=== PATIENT | male | born 1990 | race American Indian/Alaskan Native ===

== ENCOUNTER 2017-02-15 06:41 | Emergency (ER) | payer SELFPAY ==
[2017-02-15 07:18] VITALS: BP 151/88
--- NOTE | 2017-02-16 15:23 | Emergency Department Report ---
Entered by BROOKS LINN, acting as scribe for PAT WADE PA. ED Rash HPI - HPI Chief Complaint: Skin Rash Stated Complaint: ALLERGIC REACTION Time Seen by Provider: 02/15/17 09:11 Duration: 1 Day Location: Neck, Other (face) Suspected Cause: Other (new razor) Rash Symptoms: Yes Itching (neck and face), No Facial Swelling, No Tongue/Oral Swelling, No Breathing Difficulties, No Choking Sensation, No Wheezing/Dyspnea, No Peeling, No Blistering, No Fever, No Lightheaded, No Malaise, No Myalgias Severity: mild Other History: 26 y/o male, with no PMHx, presents with constant, mild rash to the face and neck that started yesterday as a result of shaving with a brand new razor. Sx include facial and neck itching but pt denies SOB, SPENCER, fever, n/ v or throat swelling. He also denies taking any medication for the Sx. ED Review of Systems ROS: Stated complaint: ALLERGIC REACTION Other details as noted in HPI Comment: All other systems reviewed and negative Constitutional: denies: chills, fever Respiratory: denies: cough, shortness of breath Cardiovascular: denies: chest pain Gastrointestinal: denies: abdominal pain, nausea, vomiting Skin: rash, other (face and neck itching) ED Past Medical Hx - Past Medical History Previous Medical History?: No - Surgical History Past Surgical History?: No - Social History Smoking Status: Current Every Day Smoker Substance Use Type: Alcohol, Other - Medications Home Medications: Home Medications Medication Instructions Recorded Confirmed Last Taken Type Sulfamethoxazole/Trimethoprim 1 each PO BID #20 tablet 06/14/14 Unknown Rx [Bactrim Ds] metroNIDAZOLE [Flagyl] 500 mg PO Q8HR #10 tablet 06/14/14 Unknown Rx Cephalexin [Keflex] 500 mg PO BID #30 capsule 02/15/17 Unknown Rx diphenhydrAMINE [Benadryl CAP] 25 mg PO QHS PRN #20 capsule 02/15/17 Unknown Rx Rash Exam - Exam General: Vital signs noted. No distress. Alert and acting appropriately. GENERAL: Patient is alert and oriented x 3. No apparent distress, normal gait, atraumatic. HEAD: Head is normocephalic and atraumatic. NEUROLOGIC: No focal deficit., Cranial nerves II - XII are grossly intact. No loss of sensation. No facial droop. HEENT: No Periorbital Edema, No Conjuctival Injection, No Chemosis, No Perioral Edema, No Tongue Edema, No Uvular Edema, No Compromised Airway, No Drooling Lungs: Yes Good Air Exchange, No Wheezes, No Ronchi, No Stridor, No Cough, No Labored Respirations, No Retractions, No Use of Accessory Muscles, No Other Abnormal Lung Sounds Heart: No Regular, No Murmur Skin: Yes Other (facial and neck lesions consistent with folliculitis. No TTP), No Urticarial Rash, No Maculopapular Rash, No Morbilliform rash, No Bulla(e), No Excoriations, No Weeping, No Tenderness, No Erythema, No Edema, No Encrustations Other: Positive: Abdomen Normal, Neurologic Normal, Musculoskeletal Normal ED Course Vital Signs 02/15/17 07:14 Temperature 98.3 F Pulse Rate 63 Respiratory 18 Rate Blood Pressure 151/88 O2 Sat by Pulse 100 Oximetry ED Medical Decision Making - Medical Decision Making 26-year-old male presents with rash to the face and neck that started yesterday. ED course: Pt states rash itches. Pt is not ill-appearing. Exam: Pt has lesions to the face and neck consistent with folliculitis Discussed with pt to watch rash for the next couple of days. Discussed the follow-up for a tie in hand as referred. Discuss his symptoms return or worsen to return to the ED Pt states understanding and will follow instructions. Vital signs stable. Patient is in no acute distress. Critical care attestation.: If time is entered above; I have spent that time in minutes in the direct care of this critically ill patient, excluding procedure time. ED Disposition Clinical Impression: Folliculitis barbae, Carbuncle and furuncle of face Disposition: DC-01 TO HOME OR SELFCARE Is pt being admited?: No Does the pt Need Aspirin: No Condition: Stable Instructions: Furunculosis and Carbunculosis (ED) Prescriptions: diphenhydrAMINE [Benadryl CAP] 25 mg PO QHS PRN #20 capsule PRN Reason: Allergy Symptoms Cephalexin [Keflex] 500 mg PO BID #30 capsule Referrals: PRIMARY CARE, [Primary Care Provider] - 3-5 Days [facility] [Outside] - 3-5 Days [facility] [Outside] - 3-5 Days [facility] [Outside] - 3-5 Days Forms: Work/School Release Form(ED) Time of Disposition: 10:30 This documentation as recorded by the TEMITOPE soares RYAN,accurately reflects the service I personally performed and the decisions made by ,PAT WADE PA.
== END 2017-02-15 10:37 | disposition home or self-care (01) ==
LOC: ED 06:41
DX: L02.03 Carbuncle of face (principal); F17.200 Nicotine dependence, unspecified, uncomplicated
CPT/HCPCS: 99282

== ENCOUNTER 2018-10-06 13:29 | Emergency (ER) | payer OTHER ==
--- NOTE | 2018-10-06 13:40 | Emergency Department Report ---
Blank Doc - Documentation Documentation: 27 y/o male comes in for lower lip swelling this morning. Patient reports that is hurts. Thinks it may had happen after he went to the [facility].
[2018-10-06 13:41] VITALS: BP 123/68
[2018-10-06] MEDS ORDERED: DECADRON IM ONE (14:46)
[2018-10-06] MEDS ORDERED: XYLOCAINE 1% MPF 5 mL INFILTRATI ONE (14:48)
[2018-10-06] MEDS ORDERED: ROCEPHIN IM ONE (14:48)
--- NOTE | 2018-10-06 14:49 | Emergency Department Report ---
ED Rash HPI - HPI Chief Complaint: Allergic Reaction Stated Complaint: BOTTOM LIP SWOLLEN Time Seen by Provider: 10/06/18 14:45 Duration: 5 Days Location: Other Suspected Cause: Other Rash Symptoms: Yes Blistering, No Itching, No Facial Swelling, No Tongue/Oral Swelling, No Breathing Difficulties, No Choking Sensation, No Wheezing/Dyspnea, No Peeling, No Fever, No Lightheaded, No Malaise, No Myalgias Severity: mild Other History: Patient is a 27-year-old male who presents to the emergency room with herpetic lesions on his lip. He states he's never had these before. There is quite a bit of swelling of the upper lip. He also has a secondary infection probably from picking at the wound. He states that the wound does tingle and olivares. It is crusty and is shiny as would be expected with cold sores. Patient denies any history of STDs HSV or HIV. ED Review of Systems ROS: Stated complaint: BOTTOM LIP SWOLLEN Other details as noted in HPI Comment: All other systems reviewed and negative ED Past Medical Hx - Past Medical History Previous Medical History?: No - Surgical History Past Surgical History?: No - Family History Family history: no significant - Social History Smoking Status: Current Every Day Smoker Substance Use Type: Marijuana - Medications Home Medications: Home Medications Medication Instructions Recorded Confirmed Last Taken Type Acyclovir [Zovirax Tab] 800 mg PO Q12H #20 tab 10/06/18 Unknown Rx cefTRIAXone [Rocephin] 1 gm IM ONCE #1 vial 10/06/18 Unknown Rx predniSONE [Deltasone] 20 mg PO DAILY #5 tablet 10/06/18 Unknown Rx Rash Exam - Exam General: Vital signs noted. No distress. Alert and acting appropriately. HEENT: No Periorbital Edema, No Conjuctival Injection, No Chemosis, No Perioral Edema, No Tongue Edema, No Uvular Edema, No Compromised Airway, No Drooling Lungs: Yes Good Air Exchange, No Wheezes, No Ronchi, No Stridor, No Cough, No Labored Respirations, No Retractions, No Use of Accessory Muscles, No Other Abnormal Lung Sounds Heart: Yes Regular, No Murmur Skin: Yes Excoriations, Yes Encrustations, No Urticarial Rash, No Maculopapular Rash, No Morbilliform rash, No Bulla(e), No Weeping, No Tenderness, No Erythema, No Edema Other: Positive: Abdomen Normal, Neurologic Normal, Musculoskeletal Normal ED Course Vital Signs 10/06/18 13:39 Temperature 98.3 F Pulse Rate 57 L Respiratory 16 Rate Blood Pressure 123/68 O2 Sat by Pulse 100 Oximetry ED Medical Decision Making - Medical Decision Making Vital Signs 10/06/18 13:39 Temperature 98.3 F Pulse Rate 57 L Respiratory 16 Rate Blood Pressure 123/68 O2 Sat by Pulse 100 Oximetry ABC intact controlling secretions taking po no fever WDWN non ill appearing male Patient was educated on oral herpes. I've given him antiviral for the acute outbreak. I also put him on prednisone. I have treated him with Rocephin here in the ER for the secondary infection. Also discussed prophylaxis with the patient and given him primary care follow-up. Critical care attestation.: If time is entered above; I have spent that time in minutes in the direct care of this critically ill patient, excluding procedure time. ED Disposition Clinical Impression: HSV (herpes simplex virus) infection, Cold sore, Secondary infection Disposition: DC-01 TO HOME OR SELFCARE Is pt being admited?: No Does the pt Need Aspirin: No Condition: Stable Instructions: Oral Herpes Simplex Virus Infections (ED) Additional Instructions: DIET TOLERATED MEDS ORDERED TODAY IN ER FOLLOW INSTRUCTIONS ON THE BOTTLE FOLLOW UP PCP WITHIN 48 HOURS TO ENSURE YOU ARE GETTING BETTER ACTIVITY TOLERATED MOTRIN OR TYLENOL FOR PAIN OR FEVER RETURN TO THE ER FOR WORSENING SYMPTOMS NOT RELIEVED BY YOUR MEDICATIONS. Prescriptions: predniSONE [Deltasone] 20 mg PO DAILY #5 tablet cefTRIAXone [Rocephin] 1 gm IM ONCE #1 vial Acyclovir [Zovirax Tab] 800 mg PO Q12H #20 tab Referrals: [facility] [Outside] - 3-5 Days Forms: Work/School Release Form(ED) Time of Disposition: 14:46
== END 2018-10-06 15:02 | disposition home or self-care (01) ==
LOC: ED 13:29
DX: B00.9 Herpesviral infection, unspecified (principal)
CPT/HCPCS: 96372; 99282; J0696; J1100

== ENCOUNTER 2019-09-11 13:07 | Emergency (ER) | payer SELFPAY ==
[2019-09-11 13:33] VITALS: BP 126/87
--- NOTE | 2019-09-11 13:35 | Emergency Department Report ---
Chief Complaint: Neck Pain/Injury Stated Complaint: SHOULDER PAIN Time Seen by Provider: 09/11/19 13:31 - HPI History of Present Illness: pt is a 28 yo male who presents to the ED with c/o right sided neck and right sided shoulder pain began yesterday he denies any injury or fall he denies any numbness, weakness, bowel or bladder incontinence no fever, n/v/d, no headache, no vision changes PMHx none no allergies to meds Vitals are normal On exam: Non toxic appearing, no acute distress atraumatic, normocephalic normal appearance of the eyes, PERRL, EOMI, no periorbital edema or ecchymosis moist mucus membranes regular heart rate and rhythm, no gallops, no rubs, no murmurs breath sounds are clear bilaterally, no w/r/r No midline or paraspinal C-spine, T-spine, L-spine tenderness to palpation, no step-offs, no deformities, full range of motion of the C-spine, no meningeal signs Right-sided trapezius tenderness to palpation, no deformity, no crepitus, full range of motion of the bilateral upper extremities, neurovascularly intact, able to lift arms above the head A&O x4, no focal neuro deficit, 5 out of 5 strength in the bilateral upper extremities and lower extremities, sensation intact throughout cranial nerves II through XII intact, normal gait skin is warm, dry, intact Examination consistent with muscle strain Nexus criteria negative, no clinical signs or symptoms of meningitis Discussed supportive care and [id number] treatment with patient Patient will be referred to a primary care doctor and orthopedic doctor Discussed strict return precautions with patient Medical screening examination performed and there is no threat to life or limb at this time MSE screening note: Focused history and physical exam performed. ED Disposition for MSE Clinical Impression: Trapezius muscle strain Qualifiers: Encounter type: initial encounter Laterality: right Qualified Code(s): S46.811A - Strain of other muscles, fascia and tendons at shoulder and upper arm level, right arm, initial encounter Disposition: MED SCREENING EXAM-LEFT Is pt being admited?: No Does the pt Need Aspirin: No Condition: Stable Instructions: Muscle Strain (ED) Additional Instructions: alternate tylenol then ibuprofen every 6-8 hours as needed for pain. may use ice pack for 15 minutes, heating pad for 15 minutes, rest, epsom salt bath. follow up with a primary care doctor. follow up with an orthopedic doctor. return to the emergency room for any new or worsening symptoms Referrals: GRANT CHRISTINE MD [Staff Physician] - 3-5 Days [facility] [Outside] - 3-5 Days [facility] [Outside] - 3-5 Days [facility] [Provider Group] - 3-5 Days AUDRA IVEY MD [Staff Physician] - 3-5 Days [facility] [Provider Group] - 3-5 Days Time of Disposition: 13:36 Print Language: KHMER
== END 2019-09-11 13:40 | disposition left against medical advice (07) ==
LOC: ED 13:07
DX: S46.811A Strain of other muscles, fascia and tendons at shoulder and upper arm level, right arm, initial encounter (principal); X58.XXXA Exposure to other specified factors, initial encounter; Y93.89 Activity, other specified; Y92.89 Other specified places as the place of occurrence of the external cause; Y99.8 Other external cause status
CPT/HCPCS: 99281

== ENCOUNTER 2021-11-18 15:57 | Emergency (ER) | payer SELFPAY ==
[2021-11-18 16:01] VITALS: BP 150/90
== END 2021-11-18 22:45 | disposition left against medical advice (07) ==
LOC: ED 15:57
DX: R11.2 Nausea with vomiting, unspecified (principal); Z53.21 Procedure and treatment not carried out due to patient leaving prior to being seen by health care provider